=== PATIENT | female | born 1995 | race Two or more races ===

== ENCOUNTER 2024-06-21 18:54 | Observation (INO) | payer MEDICAID, SELFPAY ==
[2024-06-17 11:24] VITALS: BMI 20.9
[2024-06-17 11:56] LABS: Collection Type, Urine Clean Catch
[2024-06-17 13:29] LABS: Basophils % (Auto) 0 % (0-2.5); Eosinophils # (Auto) 0.1 Thou/mm3 (0.0-0.5); Eosinophils % (Auto) 1 % (0-10); Hematocrit 37.9 % (36.0-46.0); Hemoglobin 12.5 g/dL (12.0-16.0); Immature Granulocytes % (Auto) 0 % (0-0); Immature Granulocytes Auto 0.02 Thou/mm3 (0.00-0.00); Lymphocytes # (Auto) 2.1 Thou/mm3 (1.0-4.8); Lymphocytes % (Auto) 25 % (10-50); Mean Corpuscular Hemoglobin 30.9 pg (25.0-35.0); Mean Corpuscular Volume 94 fL (80-100); Monocytes # (Auto) 0.5 Thou/mm3 (0.0-0.8); Monocytes % (Auto) 6 % (0-12); Neutrophils # (Auto) 5.4 Thou/mm3 (1.8-7.7); Neutrophils % (Auto) 67 % (37-80); Nucleated Red Blood Cell % 0 /100 WBC (0); Platelet Count 259 Thou/mm3 (140-440); RDW Standard Deviation 47.8 fL (36.4-46.3); Red Blood Count 4.05 Miln/mm3 (4.00-5.20); White Blood Count 8.1 Thou/mm3 (3.6-11.0)
[2024-06-17 13:38] LABS: HCG Qualitative,Urine Negative
[2024-06-17 13:45] LABS: Partial Thromboplastin Time 31.1 Seconds (22.0-36.0); Prothrombin Time 10.8 Seconds (9.0-12.2)
[2024-06-17 13:55] LABS: Alanine Aminotransferase 11 U/L (10-49); Albumin, Serum 4.4 gm/dL (3.5-5.0); Albumin/Globulin Ratio 1.8 (1.2-2.2); Alkaline Phosphatase 74 U/L (46-116); Anion Gap 4 (7-16); Aspartate Amino Transferase 17 U/L (0-34); BUN/Creatinine Ratio 16 Ratio (12-20); Bilirubin,Total 0.5 mg/dL (0.3-1.2); Blood Urea Nitrogen 13 mg/dL (9-23); Calcium 9.2 mg/dL (8.3-10.6); Calcium (Corrected) 9.2 mg/dL (8.5-10.1); Carbon Dioxide 29.5 mMol/L (20.0-31.0); Chloride 109 mMol/L (98-107); Creatinine (Component) 0.8 mg/dL (0.6-1.3); Estimated Creatinine Clearance 78.3 mL/min (>60); Globulin 2.4 gm/dL (2.3-3.5); Glucose 93 mg/dL (74-106); Osmolality,Calculated 283 (275-295); Potassium 4.3 mMol/L (3.4-5.1); Sodium 142 mMol/L (136-145); Total Protein 6.8 gm/dL (5.7-8.2); eGFR > 60 See Note
[2024-06-17 13:55] LABS: Bilirubin,Urine Negative (Negative); Blood,Urine Negative (Negative); Color,Urine Yellow (Lt Yel-Yel); Glucose, Urine Negative (Negative); Ketones,Urine Negative (Negative); Leukocyte Esterase,Urine Negative (Negative); Nitrite,Urine Negative (Negative); Protein,Urine Trace (Neg - Trace); RBC,Urine 9 /hpf (0-3); Specific Gravity,Urine 1.029 (1.001-1.035); Squamous Epithelial Cell,Urine 3 /hpf (0-5); Urobilinogen,Urine Negative mg/dL (0.0-1.0); WBC,Urine 2 /hpf (0-5)
[2024-06-17 13:59] LABS: Clarity,Urine Hazy (Clear/Hazy)
[2024-06-21] VITALS (20 sets, daily range): BP systolic 104–141; BP diastolic 61–99; PULSE 55–107; RESP 12–20; TEMP 36.3–37; O2SAT 94–100; BMI 20.5; BMI 21.7
--- NOTE | 2024-06-21 08:02 | SUR.PREOP ---
Patient expressed gratitude for prayer before their procedure.
[2024-06-21] MEDS: MIDAZOLAM INJ 1 MG/ML VIAL 2 ML 2 MG IV (08:28)
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
--- NOTE | 2024-06-21 13:27 | SUR.PHASEI ---
pt received from OR in recovery bay 2. pt asleep but responds to voice, breathing unlabored on 8l oxymask. v/s stable. pt dressing to abd x4 cdi. report received from Krystal SAMUEL, Gustavo SAMUEL and Rudy OROPEZA.
[2024-06-21] MEDS: ONDANSETRON INJ 2 MG/ML INJ 2 ML 4 MG IV (13:35)
[2024-06-21] MEDS: HYDROmorphone INJ 2 MG/ML VIAL 0.4 MG IV (13:36)
[2024-06-21] MEDS: METOCLOPRAMIDE INJ 5 MG/ML VIAL 2 ML 10 MG IV (15:39)
[2024-06-21] MEDS: PROMETHAZINE INJ 25 MG in SODIUM CHLORIDE 0.9% 50 ML IV (17:19)
--- NOTE | 2024-06-21 19:40 | SUR.PHASEII ---
pt awake and alert, breathing unlabored on room air. v/s stable. pt dressing to abd x4 cdi. report called to Mirian Rn. pt will be transferred to room at this time.
[2024-06-21] MEDS: ACETAMINOPHEN IVPB 1,000 MG/100 ML VIAL 250 MG IV (21:44)
[2024-06-22] VITALS: BP 113/74; PULSE 62; RESP 15; TEMP 36.2; O2SAT 98
[2024-06-22] MEDS: KETOROLAC INJ 30 MG/ML VIAL IVP ×2 (01:34→10:07)
[2024-06-22 01:45] LABS: Collection Type, Urine Clean Catch
[2024-06-22 02:31] LABS: Bilirubin,Urine Negative (Negative); Blood,Urine Negative (Negative); Clarity,Urine Clear (Clear/Hazy); Color,Urine Colorless (Lt Yel-Yel); Culture Indicated,Urine Not Indicated; Glucose, Urine Negative (Negative); Ketones,Urine Negative (Negative); Leukocyte Esterase,Urine Negative (Negative); Nitrite,Urine Negative (Negative); Protein,Urine Negative (Neg - Trace); RBC,Urine < 1 /hpf (0-3); Specific Gravity,Urine 1.005 (1.001-1.035); Squamous Epithelial Cell,Urine < 1 /hpf (0-5); Urobilinogen,Urine Negative mg/dL (0.0-1.0); WBC,Urine < 1 /hpf (0-5)
[2024-06-22 04:00] VITALS: BP 114/72; PULSE 70; RESP 15; TEMP 36.1; O2SAT 98
[2024-06-22] MEDS: ACETAMINOPHEN IVPB 1,000 MG/100 ML VIAL 250 MG IV (06:54)
[2024-06-22] MEDS: PHENAZOPYRIDINE HCL 100 MG TABLET PO ×2 (07:54→11:32)
[2024-06-22 08:00] VITALS: BP 126/68; PULSE 78; RESP 18; TEMP 36.7; O2SAT 98
--- NOTE | 2024-06-22 10:30 | CHAP ---
Spent time with patient giving encouragement and comfort and prayer. Patient is depressed and feeling that she has failed in her relationships and life. I will call on her again tomorrow.
[2024-06-22 12:00] VITALS: BP 126/68; PULSE 78; RESP 18; TEMP 36.7; O2SAT 98
--- NOTE | 2024-06-22 12:14 | PD.SURPROG ---
Documentation for date of: 06/22/24 Subjective Subjective Brief History: This patient is status post laparoscopic cholecystectomy she had nausea and she was admitted overnight for observation her nausea improved on IV antinausea medications overnight and now she is tolerating diet well and she is being discharged home. Exam Vital Signs Temp Pulse Resp BP Pulse Ox O2 Del Method O2 Flow Rate 98.0 F 78 18 126/68 98 Room Air 6 06/22/24 08:00 06/22/24 08:00 06/22/24 08:00 06/22/24 08:00 06/22/24 08:00 06/22/24 08:00 06/21/24 13:35 Narrative Exam Abdomen is soft and nontender bowel tones are normal incisions are normal. Assessment & Plan Diagnosis (1) Cholelithiasis and cholecystitis without obstruction: Status: Acute (2) Peritoneal adhesions: Status: Acute (3) Nausea and vomiting: Status: Acute Plan Discharge home follow-up in the office in 2 weeks Procedures Procedure Date 06/21/24 Procedures Laparoscopic cholecystectomy, laparoscopic lysis of extensive adhesions that increase the operative time by about 70%. On 06/21/2024
== END 2024-06-22 14:19 | disposition home or self-care (01) ==
LOC: S3SX 06-22 07:02
PROVIDERS: Anesthesiology; Admitting Provider Specialist; PCP Internal Medicine; Referring Provider Specialist; Visit Provider Specialist
PROC: 0FT44ZZ Resection of Gallbladder, Percutaneous Endoscopic Approach (ICD-10-PCS; CPT 47562; principal; 2024-06-21 09:45)
DX: R11.2 Nausea with vomiting, unspecified (principal); K80.10 Calculus of gallbladder with chronic cholecystitis without obstruction; K66.0 Peritoneal adhesions (postprocedural) (postinfection); Z87.828 Personal history of other (healed) physical injury and trauma
CPT/HCPCS: 47562; 36415; 80053; 81001; 81025; 85025; 85610; 85730; 87086; 96365; A4217; A4649; G0378; J0131; J0694; J1885; J2250; J2310; J2405; J2550; J2704; J2765; J3010; J3490; A9270